=== PATIENT | female | born 1965 | race Caucasian/White ===

== ENCOUNTER 2020-04-02 18:25 | Emergency (ER) | payer MEDICAID ==
[~2020-04-02] VITALS: Ht 154.9 cm; Wt 64.0 kg
[2020-04-02 18:35] VITALS: BP 150/104
[2020-04-02] MEDS ORDERED: SODIUM CHLORIDE 0.9% 1,000ML IVBOLUS ONE (19:00)
[2020-04-02] MEDS ORDERED: SODIUM CHLORIDE FLUSH 10ML SYR IVF ONE (19:00)
--- NOTE | 2020-04-02 19:10 | NUR ---
Patient unable to provide urine at this time.
[2020-04-02 19:19] LABS: BASOPHILS % (AUTO) 1 % (0-1); EOSINOPHILS % (AUTO) 2 % (1-7); LYMPHOCYTES % (AUTO) 24 % (22-44); MEAN CORPUSCULAR HEMOGLOBIN 28.4 pg (27.0-34.8); MEAN CORPUSCULAR HGB CONC 32.2 g/dL (32.4-35.8); MEAN PLATELET VOLUME 9.2 fL (7.4-10.4); MONOCYTES % (AUTO) 7 % (2-9); NEUTROPHILS % (AUTO) 67 % (42-75); PLATELET COUNT 286 x10^3/uL (130-400); RED CELL DISTRIBUTION WIDTH 14.1 % (9.6-15.2)
[2020-04-02 19:21] LABS: MD NO
--- NOTE | 2020-04-02 19:23 | NUR ---
Patient presents to ER c/o high BS. No associated symptoms, just states, "I'm tired." Patient is in NAD. Respirations even and unlabored.
[2020-04-02 19:27] LABS: ALANINE AMINOTRANSFERASE 16 U/L (12-78); ALBUMIN 3.1 g/dL (3.4-5.0); ANION GAP 6 mmol/L (5-15); CHLORIDE 107 mmol/L (98-107); CREATININE 0.92 mg/dL (0.55-1.02)
[2020-04-02 19:30] LABS: ALKALINE PHOSPHATASE 120 U/L (45-117); BILIRUBIN,TOTAL 0.2 mg/dL (0.2-1.0); TOTAL PROTEIN 6.7 g/dL (6.4-8.2)
[2020-04-02 19:51] LABS: ACETONE, SERUM Negative (Negative)
[2020-04-02] MEDS ORDERED: INSULIN REGULAR 100 UNITS/ML, 3ML VIAL IVPush ONE (20:00)
[2020-04-02] MEDS ORDERED: INSULIN SINGLE DOSE, ER ONE (20:26)
[2020-04-02] MEDS ORDERED: INSULIN REGULAR 100 UNITS/ML, 3ML VIAL SQ-INSULIN ONE (20:30)
--- NOTE | 2020-04-02 20:44 | NUR ---
Insulin admin per mar. Patient provided urine and fluids continued. Patient states, "I just want to go home." Advised patient we wanted to test her urine and see how the insulin and fluid help. Patient refused stating, "Can I take this IV out? Get the IV out." D/c IV. Asked patient if she would wait for paperwork from the doctor. Patient refused. Patient signed AMA.
== END 2020-04-02 20:53 ==
LOC: ED 19:26
DX: E11.65 Type 2 diabetes mellitus with hyperglycemia (principal)
CPT/HCPCS: 36415; 80053; 82010; 82800; 83036; 85025; 96360; 96361; 99283; J1815; J7030

== ENCOUNTER 2020-12-31 20:43 | Emergency (ER) | payer MEDICAID ==
[~2020-12-31] VITALS: Ht 154.9 cm; Wt 55.0 kg
[2020-12-31 20:47] VITALS: BP 175/102
--- NOTE | 2020-12-31 20:52 | NUR ---
PT BIB EMS FOR HIGH BLOOD SUGAR. PT REPORTS SHE RAN OUT OF HER INSULIN AND HASNT BEEN ABLE TO GET A REFILL. SHE CALLED 911 TO GET HER BLOOD SUGAR CHECKED. IT WAS 491 PER EMS. PT RESTING IN [facility]. AWAITING PROVIDER
[2020-12-31] MEDS ORDERED: SODIUM CHLORIDE 0.9% 1,000ML IVBOLUS ONE (21:30)
[2020-12-31] MEDS ORDERED: SODIUM CHLORIDE FLUSH 10ML SYR IVF ONE (21:30)
[2020-12-31 21:39] LABS: MICROSCOPIC NOT IND
[2020-12-31 21:44] LABS: BASOPHILS % (AUTO) 1 % (0-1); EOSINOPHILS % (AUTO) 3 % (1-7); LYMPHOCYTES % (AUTO) 33 % (22-44); MEAN CORPUSCULAR HEMOGLOBIN 29.7 pg (27.0-34.8); MEAN CORPUSCULAR HGB CONC 33.4 g/dL (32.4-35.8); MEAN PLATELET VOLUME 9.9 fL (7.4-10.4); MONOCYTES % (AUTO) 7 % (2-9); NEUTROPHILS % (AUTO) 57 % (42-75); PLATELET COUNT 220 x10^3/uL (130-400); RED BLOOD COUNT 4.43 x10^6/uL (3.82-5.3); RED CELL DISTRIBUTION WIDTH 14.1 % (9.6-15.2)
[2020-12-31 21:56] LABS: ALANINE AMINOTRANSFERASE 22 U/L (12-78); ALBUMIN 2.8 g/dL (3.4-5.0); CALCIUM 8.4 mg/dL (8.5-10.1); CREATININE 0.92 mg/dL (0.55-1.02)
[2020-12-31 21:58] LABS: ALKALINE PHOSPHATASE 132 U/L (45-117); BILIRUBIN,TOTAL 0.2 mg/dL (0.2-1.0)
[2020-12-31 21:59] LABS: FIO2 ROOM AIR %; PH, VENOUS 7.358 pH (7.320-7.420)
--- NOTE | 2020-12-31 22:06 | NUR ---
report from shyam fernandez
[2020-12-31 22:10] LABS: ANION GAP 6 mmol/L (5-15); CHLORIDE 102 mmol/L (98-107)
[2020-12-31] MEDS ORDERED: INSULIN REGULAR 100 UNITS/ML, 3ML VIAL IVPush ONE (22:30)
[2020-12-31] MEDS ORDERED: INSULIN SINGLE DOSE, ER ONE (22:34)
[2020-12-31 22:36] LABS: ACETONE, SERUM Negative (Negative)
--- NOTE | 2020-12-31 22:46 | NUR ---
PT MEDICATED PER MAR
== END 2020-12-31 23:50 | disposition home or self-care (01) ==
LOC: ED 20:49
DX: E11.65 Type 2 diabetes mellitus with hyperglycemia (principal); I10 Essential (primary) hypertension; Z72.9 Problem related to lifestyle, unspecified
CPT/HCPCS: 36415; 80053; 81003; 82010; 82803; 82962; 85025; 96374; 99283; J1815; J7030